=== PATIENT | male | born 1995 | race Caucasian/White ===

== ENCOUNTER 2017-02-26 04:07 | Emergency (ER) | payer SELFPAY ==
[~2017-02-26] VITALS: Ht 177.8 cm; Wt 67.5 kg
[2017-02-26 04:08] VITALS: BP 110/71
[2017-02-26] MEDS ORDERED: ONDANSETRON ODT 4 MG ONE ×2 (04:44→05:05)
[2017-02-26] MEDS ORDERED: ONDANSETRON ODT 8 MG PO ONE (05:00)
== END 2017-02-26 05:51 | disposition home or self-care (01) ==
LOC: ED 05:15
DX: R11.2 Nausea with vomiting, unspecified (principal); R10.10 Upper abdominal pain, unspecified
CPT/HCPCS: 99283; Q0162